=== PATIENT | female | born 1960 | race African-American/Black ===

== ENCOUNTER 2017-01-24 00:32 | Emergency (ER) | payer MEDICARE, OTHER ==
[~2017-01-24] VITALS: Ht 152.4 cm; Wt 128.8 kg
[2017-01-24 00:55] VITALS: BP 123/70
[2017-01-24] MEDS ORDERED: Nitroglycerin 2% oint pkt TOPIC ONE (01:00)
[2017-01-24] MEDS ORDERED: Morphine Sulfate 2mg/ml Inj IVP ONE (01:00)
--- NOTE | 2017-01-24 01:01 | Emergency Room Report ---
History of Present Illness General Chief Complaint: Chest Pain Source: Patient Present Illness HPI Patient presents with sharp substernal chest pain it's been present since . She's taken Tylenol and [place]. This is helped somewhat. Somewhat exertional. Does not radiate. She states that she had similar pain like this when she had a stroke. She takes Plavix at this time. She is allergic to aspirin and Advil. Denies any fever. She's had a slightly productive cough. The pain is 9/10, pressure. Family noted R sided weakness and fatigue. Concerned over possible new stroke. Increased stress with family member dying. No NVD, fever, productive cough, head trauma, incontinence, headache. She feels fatigued and depressed. She does have arthritis and states this has been less well controlled. Allergies: Coded Allergies: ASPIRIN (Verified Allergy, Unknown, 01/24/17) IBUPROFEN (Verified Allergy, Unknown, 01/24/17) KETOROLAC (Verified Allergy, Unknown, 01/24/17) Patient History Past Medical History: see triage record Social History: Denies: smoking Social History Narrative brought by daughter - from [place] Reviewed Nursing Documentation: PMH: Agreed, PSxH: Agreed Nursing Documentation-PMH Hx Diabetes: Yes Review of Systems All Other Systems: negative except mentioned in HPI Physical Exam Vital Signs Date Time Temp Pulse Resp B/P Pulse Ox O2 Delivery O2 Flow Rate FiO2 01/24/17 00:46 97.2 76 16 123/70 100 Room Air Sp02 EP Interpretation: reviewed, normal General Appearance: well appearing, no apparent distress, GCS 15, obese Head: normocephalic, atraumatic Eyes: bilateral eye EOMI, bilateral eye PERRL, bilateral eye normal inspection ENT: moist mucus membranes Neck: supple Respiratory: chest non-tender, lungs clear, normal breath sounds Cardiovascular #1: regular rate, rhythm Cardiovascular #2: 2+ radial (R) Gastrointestinal: normal inspection, normal bowel sounds, non tender, no mass, non-distended, overweight Musculoskeletal: back normal, gait/station normal, normal range of motion Neurologic: alert, oriented x3, motor strength/tone normal, DTRs symmetric, sensory intact, cerebellar normal, normal gait, speech normal, grossly normal Psychiatric: no suicidal/homicidal ideation, depressed affect Skin: normal inspection, warm/dry Medical Decision Making Diagnostic Impression: Primary Impression: Chest pain Qualified Codes: R07.9 - Chest pain, unspecified Additional Impressions: Exacerbation of arthritic pain Stress Transient R weakness ER Course Patient presents with chest pain and possible R weakness with concern over stroke. Ddx; TIA, depression, ACS, AMI, chest wall pain amongst others. No infective history or findings. Emergent evaluation with CXR, labs and EKG. Treatment with nitrates and analgesics. Based on physical exam, CT not indicated. EKG unremarkable. Labs with normal WBC and electrolytes. Repeat eval with complete resolution of weakness with pain relief. Patient stable for outpatient observation and treatment. Laboratory Tests Test 01/24/17 01:23 White Blood Count 3.9 K/UL (4.8-10.8) L Red Blood Count 4.57 M/UL (4.20-5.40) Hemoglobin 12.5 G/DL (12.0-16.0) Hematocrit 39.0 % (37.0-47.0) Mean Corpuscular Volume 85 FL (80-99) Mean Corpuscular Hemoglobin 27.4 PG (27.0-31.0) Mean Corpuscular Hemoglobin Concent 32.1 G/DL (32.0-36.0) Red Cell Distribution Width 13.5 % (11.6-14.8) Platelet Count 290 K/UL (150-450) Mean Platelet Volume 8.0 FL (6.5-10.1) Neutrophils (%) (Auto) 44.1 % (45.0-75.0) L Lymphocytes (%) (Auto) 36.9 % (20.0-45.0) Monocytes (%) (Auto) 11.1 % (1.0-10.0) H Eosinophils (%) (Auto) 5.5 % (0.0-3.0) H Basophils (%) (Auto) 2.4 % (0.0-2.0) H Prothrombin Time 10.3 SEC (9.30-11.50) Prothrombin Time INR 1.0 (0.9-1.1) PTT 27 SEC (23-33) Sodium Level 143 mEQ/L (135-145) Potassium Level 4.1 mEQ/L (3.4-4.9) Chloride Level 103 mEQ/L (98-107) Carbon Dioxide Level 28 mEQ/L (20-30) Anion Gap 12 (5-15) Blood Urea Nitrogen 21 mg/dL (7-23) Creatinine 1.1 mg/dL (0.5-0.9) H Estimate Glomerular Filtration Rate > 60 mL/min (>60) Glucose Level 112 mg/dL (74-106) H Calcium Level 9.3 mg/dL (8.6-10.2) Total Bilirubin < 0.2 mg/dL (0.0-1.2) Aspartate Amino Transferase (AST) 18 U/L (5-40) Alanine Aminotransferase (ALT) 18 U/L (3-33) Alkaline Phosphatase 98 U/L (35-104) Total Creatine Kinase 153 U/L (26-140) H Troponin I < 0.30 ng/mL (<=0.30) Pro-B-Type Natriuretic Peptide 31 pg/mL (0-125) Total Protein 7.6 g/dL (6.6-8.7) Albumin 4.2 g/dL (3.5-5.2) Globulin 3.4 g/dL Albumin/Globulin Ratio 1.2 (1.0-2.7) EKG Diagnostic Results Rate: normal Rhythm: NSR ST Segments: no acute changes Rhythm Strip Diag. Results EP Interpretation: yes Rhythm: NSR, no PVC's, no ectopy Chest X-Ray Diagnostic Results EP Interpretation: Yes Findings: no consolidation, no effusion, no pneumothorax, no acute cardiopulmonary disease Number of Views: 1 Last Vital Signs Date Time Temp Pulse Resp B/P Pulse Ox O2 Delivery O2 Flow Rate FiO2 01/24/17 05:20 97.4 75 20 108/74 100 Room Air Status: improved Disposition: HOME, SELF-CARE Condition: Improved Scripts Tramadol Hcl* (ULTRAM*) 50 Mg Tablet 50 MG ORAL Q6H Y for For Pain, #10 TAB 0 Refills Prov: Patrick Schafer M.D. 01/24/17 Patrick Schafer M.D. Jan 24, 2017 01:00
[2017-01-24 01:36] LABS: BASOPHILS % (AUTO) 2.4 % (0.0-2.0); EOSINOPHILS % (AUTO) 5.5 % (0.0-3.0); LYMPHOCYTES % (AUTO) 36.9 % (20.0-45.0); MEAN CORPUSCULAR HEMOGLOBIN 27.4 PG (27.0-31.0); MEAN CORPUSCULAR HGB CONC 32.1 G/DL (32.0-36.0); MEAN CORPUSCULAR VOLUME 85 FL (80-99); MONOCYTES % (AUTO) 11.1 % (1.0-10.0); NEUTROPHILS % (AUTO) 44.1 % (45.0-75.0); PLATELET COUNT 290 K/UL (150-450); RED BLOOD COUNT 4.57 M/UL (4.20-5.40); RED CELL DISTRIBUTION WIDTH 13.5 % (11.6-14.8); WHITE BLOOD COUNT 3.9 K/UL (4.8-10.8)
[2017-01-24] MEDS ORDERED: Hydromorphone 0.5mg/0.5ml inj IVP ONE (01:45)
[2017-01-24 01:53] LABS: PROTHROMBIN TIME 10.3 SEC (9.30-11.50)
[2017-01-24 01:56] LABS: ALANINE AMINOTRANSFERASE 18 U/L (3-33); ALBUMIN/GLOBULIN RATIO 1.2 (1.0-2.7); ANION GAP 12 (5-15); ASPARTATE AMINO TRANSFERASE 18 U/L (5-40); CALCIUM 9.3 mg/dL (8.6-10.2); CARBON DIOXIDE 28 mEQ/L (20-30); CHLORIDE 103 mEQ/L (98-107); CREATININE 1.1 mg/dL (0.5-0.9); GLOMERULAR FILTRATION RATE > 60 mL/min (>60); HEMOLYSIS 4; POTASSIUM 4.1 mEQ/L (3.4-4.9); SODIUM 143 mEQ/L (135-145); TOTAL PROTEIN 7.6 g/dL (6.6-8.7)
[2017-01-24 01:58] LABS: TROPONIN I < 0.30 ng/mL (<=0.30)
[2017-01-24 02:55] VITALS: BP 105/70
[2017-01-24 04:55] VITALS: BP 108/74
[2017-01-24] MEDS ORDERED: TRAMADOL HCL50 MG ORAL (05:12)
[2017-01-24 05:20] VITALS: BP 108/74
--- NOTE | 2017-01-24 11:41 | Diagnostic Imaging Report ---
Indication: Chest Pain Comparison: None A single view chest radiograph was obtained. Findings: Aorta is ectatic. Borderline cardiomegaly is noted. Pulmonary vascularity is appropriate. The diaphragmatic contour is smooth and costophrenic angles are sharp. No pleural effusions are identified. The bones are unremarkable. Impression: No acute findings
--- NOTE | 2017-01-27 11:36 | Cardiology Report ---
APPROVED REPORT EKG Measurement Heart [id number] Normal sinus rhythm Normal ECG
== END 2017-01-24 05:20 | disposition home or self-care (01) ==
LOC: EMR 01:12
DX: R07.9 Chest pain, unspecified (principal); M19.90 Unspecified osteoarthritis, unspecified site; F43.9 Reaction to severe stress, unspecified; R53.1 Weakness; E11.9 Type 2 diabetes mellitus without complications; Z88.6 Allergy status to analgesic agent
CPT/HCPCS: 36415; 71010; 80053; 82550; 83880; 84484; 85025; 85610; 85730; 93005; 96374; 96375; 99284; J1170; J2405